=== PATIENT | female | born 1960 | race Caucasian/White ===

== ENCOUNTER 2018-06-03 06:01 | Emergency (ER) | payer OTHER ==
[~2018-06-03 06:01] MED LIST: BUSPIRONE HCL10 M1 PO; LIALDA1.2 G1 PO
--- NOTE | 2018-06-03 06:57 | ED THROAT/DENTAL COMPLAINT ---
History of Present Illness General Chief Complaint: General Adult Stated Complaint: "LOST VOICE PAINFULL,HERNANDEZ, STREP GETTING WORST" Source: patient Exam Limitations: no limitations Vital Signs & Intake/Output Vital Signs & Intake/Output Vital Signs Date Time Temp Pulse Resp B/P B/P Pulse O2 O2 Flow FiO2 Mean Ox Delivery Rate 06/03 0801 83 20 141/82 99 Room Air 06/03 0609 98.6 100 20 130/86 97 Allergies Coded Allergies: MDX - Aspirin (ASPIRIN) (UPSET STOMACH 10/08/12) MDX - Sulfamethoxazole (From BACTRIM) (ABDOMINAL BURNING 09/11/12) MDX - TAPE (TAPE) (UNKNOWN 09/11/12) MDX - Trimethoprim (From BACTRIM) (ABDOMINAL BURNING 09/11/12) Reconcile Medications Buspirone HCl 10 MG TABLET 1 TAB PO BID ANXIETY (Reported) Mesalamine (Lialda) 1.2 GRAM TABLET.DR 2 TAB PO DAILY COLITIS (Reported) Triage Note: PER PT DX WITH STREPT AT WALK IN ON MONDAY NOW LOSING VOICE FEVERS AND FEELING WORSE. ON ANTIBIOTICS WITHOUT EFFECT Triage Nurses Notes Reviewed? yes HPI: Patient presents for evaluation of a sore throat, hoarse voice, headache painful swallowing and cough that began about 1 week ago. Patient states she was seen in walk-in center 2 days ago and tested positive for strep throat. She has been taking Augmentin since. She has been also taking Tylenol without much improvement. She denies fever today. She denies any rashes currently. She is feeling a headache, throbbing in nature, involving the back of the head along with pressure in her ears. She has had a poor PO intake through the course of her illness. (Shilpi GUTIERREZ,Scot Arnold) Past History Travel History Traveled to [place] past 21 day No Medical History Any Pertinent Medical History? 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 No (Shilpi GUTIERREZ,Scot Arnold) Review of Systems Review of Systems Constitutional: Reports: no symptoms. EENTM: Reports: see HPI. Respiratory: Reports: no symptoms. Cardiovascular: Reports: no symptoms. GI: Reports: no symptoms. Genitourinary: Reports: no symptoms. Musculoskeletal: Reports: no symptoms. Skin: Reports: no symptoms. Neurological/Psychological: Reports: no symptoms. Hematologic/Endocrine: Reports: no symptoms. Immunologic/Allergic: Reports: no symptoms. All Other Systems: Reviewed and Negative (Shilpi GUTIERREZ,Scot Arnold) Physical Exam Physical Exam Mouth/Throat: see below Comments: Gen.: Well-nourished, well-developed, no acute respiratory distress. Hoarse voice. Head: Normocephalic, atraumatic. Eyes: Normal inspection bilaterally Ears: Normal inspection bilaterally Nose: Normal inspection Throat/mouth : Moist mucosa , manage his secretions well, bilateral oropharyngeal erythema, enlarged tonsils with exudates. Neck: Supple, full range of motion, no goiter, neutral position, mildly tender anterior cervical lymphadenopathy Heart: Regular rate and rhythm, no murmurs rubs or gallops Lungs: Clear to auscultation bilaterally with normal air entry Chest: Nontender Back: Normal range of motion Abdomen: Soft, nontender, nondistended, normal bowel sounds Extremities: Normal range of motion grossly, equal radial pulses, no cyanosis clubbing or edema Neurologic: Cranial nerves grossly intact, speech is clear Skin: warm and dry Psychiatric: Calm, cooperative, no apparent delusions or hallucinations Core Measures ACS in differential dx? No Sepsis Present: No Sepsis Focused Exam Completed? 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 (Shilpi GUTIERREZ,Scot Arnold) Comments: 0914 the patient is awake alert and oriented. No distress. No signs of airway compromise. No stridor. Headache free. Sore throat remarkably improved. Plan will be continue antibiotics and wound treatment. Emergency room return mornings in a row on Nexium. Throat appears normal. No meningismus. No distress. No signs of meningitis, or any other life-threatening pathology. No abscess. (Vinita GUTIERREZ,[facility]) Departure Departure Disposition: STILL A PATIENT Condition: Stable Clinical Impression Primary Impression: Strep pharyngitis Referrals: Kaye GUTIERREZ,Liv (PCP/Family) Departure Forms: Customer Survey General Discharge Information (Shilpi GUTIERREZ,Scot Arnold)
[2018-06-03 09:27] VITALS: BP 128/86
== END 2018-06-03 09:29 ==
LOC: ERH 06:01
DX: J02.0 Streptococcal pharyngitis (principal)
CPT/HCPCS: 96374; J1100